=== PATIENT | female | born 1965 | race American Indian/Alaskan Native ===

== ENCOUNTER 2021-05-21 10:38 | Outpatient (CLI) | payer OTHER ==
--- NOTE | 2021-05-21 12:24 | XRay Report ---
LUMBOSACRAL SPINE 3 VIEWS INDICATION: BACK PAIN. COMPARISON: None at this facility IMPRESSION: There has been previous posterior and left lateral fusion at L4-5 with disc spacer, danielle elate with history. There is 2 mm anterolisthesis of L4 with respect to L5. The remaining lumbar vert ebra are normal in alignment. No significant discogenic DJD or facet arthropathy is identified at th e remaining levels. The SI joints are symmetric and unremarkable. No acute osseous or soft tissue ab normality. Signer Name: Ralph Bo Jr, MD Signed: 05/21/2021 12:20 PM Workstation Name: [id number]
== END 2021-05-21 10:39 | disposition home or self-care (01) ==
LOC: XRAY 10:38
PROVIDERS: ATTEND Internal Medicine
DX: M43.16 Spondylolisthesis, lumbar region (principal)
CPT/HCPCS: 72100